=== PATIENT | female | born 1960 | race Caucasian/White ===

== ENCOUNTER 2019-07-23 14:50 | Emergency (ER) | payer BC, OTHER ==
[2019-07-23 14:59] VITALS: BP 176/91
--- NOTE | 2019-07-23 15:04 | ER Document Report ---
ED Medical Screen (RME) - General Chief Complaint: Knee Pain Stated Complaint: KNEE PAIN Time Seen by Provider: 07/23/19 14:59 Primary Care Provider: JUAN PAUL [Primary Care Provider] - Follow up as needed Mode of Arrival: Ambulatory Information source: Patient Notes: This 58-year-old female presents emergency department with complaints of left knee pain for a couple years increased in the last 6 months. Works as a head waitress at the [employer] and reports by the end of the week her knee is swollen. Denies trauma. Reports her father had arthritis. Left knee is benign looking no erythema no swelling no warmth no signs of infection no deformity I have greeted and performed a rapid initial assessment of this patient. A comprehensive ED assessment and evaluation of the patient, analysis of test results and completion of the medical decision making process will be conducted by additional ED providers. Dictation of this chart was performed using voice recognition software; therefore, there may be some unintended grammatical errors. - Related Data Allergies/Adverse Reactions: morphine Allergy (Verified 07/23/19 15:03) gabapentin Adverse Reaction (Verified 07/23/19 15:03) Past Medical History - Social History Chew tobacco use (# tins/day): No Frequency of alcohol use: Occasional Drug Abuse: None Physical Exam - Vital signs Vitals: Temp Pulse Resp BP Pulse Ox 98.3 F 72 18 176/91 H 98 07/23/19 14:58 07/23/19 14:58 07/23/19 14:58 07/23/19 14:58 07/23/19 14:58 Course - Vital Signs Vital signs: Temp Pulse Resp BP Pulse Ox 98.3 F 72 18 176/91 H 98 07/23/19 14:58 07/23/19 14:58 07/23/19 14:58 07/23/19 14:58 07/23/19 14:58 Doctor's Discharge - Discharge Referrals: JUAN PAUL [Primary Care Provider] - Follow up as needed
--- NOTE | 2019-07-23 15:36 | ER Document Report ---
ED Extremity Problem, Lower - General Chief Complaint: Knee Pain Stated Complaint: KNEE PAIN Time Seen by Provider: 07/23/19 14:59 Primary Care Provider: DIEGO ELWIS JR, DO [ACTIVE PROVISIONAL STAFF] - Follow up in 1 week Mode of Arrival: Ambulatory - HPI Notes: 58-year-old female to the emergency department with complaints of left knee pain that has been ongoing for about 2 years but has gotten significantly worse in the past 6 months. 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 She has been trying to control the pain herself with Tylenol and Motrin at home but as of late that has not helped to control her pain. She has not seen an orthopedist as she does not have insurance. She denies any recent falls. She denies any fevers, redness to the joint. There is a family history of arthritis. - Related Data Allergies/Adverse Reactions: morphine Allergy (Verified 07/23/19 15:03) gabapentin Adverse Reaction (Verified 07/23/19 15:03) Past Medical History - General Information source: Patient - Social History Smoking Status: Current Every Day Smoker Chew tobacco use (# tins/day): No Frequency of alcohol use: Occasional Drug Abuse: None Family History: Reviewed & Not Pertinent Patient has suicidal ideation: No Patient has homicidal ideation: No Review of Systems - Review of Systems Constitutional: denies: Chills, Fever EENT: No symptoms reported Cardiovascular: denies: Chest pain, Palpitations, Heart racing, Syncope, Dizziness, Lightheaded, Edema Respiratory: denies: Cough, Short of breath Gastrointestinal: denies: Abdominal pain, Diarrhea, Nausea, Vomiting Genitourinary: No symptoms reported Musculoskeletal: See HPI, Joint pain, Joint swelling Skin: No symptoms reported -: Yes All other systems reviewed and negative Physical Exam - Vital signs Vitals: Temp Pulse Resp BP Pulse Ox 98.3 F 72 18 176/91 H 98 07/23/19 14:58 07/23/19 14:58 07/23/19 14:58 07/23/19 14:58 07/23/19 14:58 Interpretation: Normal - General General appearance: Appears well, Alert - HEENT Head: Normocephalic, Atraumatic Eyes: Normal Pupils: PERRL - Respiratory Respiratory status: No respiratory distress Chest status: Nontender Breath sounds: Normal Chest palpation: Normal - Cardiovascular Rhythm: Regular Heart sounds: Normal auscultation Murmur: No - Abdominal Inspection: Normal Distension: No distension Bowel sounds: Normal Tenderness: Nontender Organomegaly: No organomegaly - Extremities Knee: Tender - there is TTP over the left knee joint. There is noted mild joint effusion. there is no erythema or evidence for septic joint. She cane ambulate on the knee with pain. non tender to palpation of the left hip and ankle. DP Pulses intact and equal. cap refill is less than 2 sec in all toes. - Neurological Neuro grossly intact: Yes Cognition: Normal Orientation: AAOx4 [place] Coma Scale Eye Opening: Spontaneous [place] Coma Scale Verbal: Oriented [place] Coma Scale Motor: Obeys Commands [place] Coma Scale Total: 15 Speech: Normal Cranial nerves: Normal Cerebellar coordination: Normal. No: Gait ataxia Motor strength normal: LUE, RUE, LLE, RLE Additional motor exam normals: Equal regulatory auditor. No: Pronator drift Sensory: Normal - Psychological Associated symptoms: Normal affect, Normal mood - Skin Skin Temperature: Warm Skin Moisture: Dry Skin Color: Normal Course - Re-evaluation Re-evalutation: Knee X-Ray 07/23/19 15:02 IMPRESSION: Moderate medial femorotibial compartment osteoarthrosis and small joint effusion that could be reactive to the osteoarthrosis. There is no associated fracture or dislocation. Impression: Chronic knee pain with OA. Will send home with small amount of pain meds. Urged following up with orthopedist without fail. Patient agrees with the plan. - Vital Signs Vital signs: Temp Pulse Resp BP Pulse Ox 98.3 F 72 18 176/91 H 98 07/23/19 14:58 07/23/19 14:58 07/23/19 14:58 07/23/19 14:58 07/23/19 14:58 Discharge - Discharge Clinical Impression: Arthritis of knee, right, Elevated blood pressure reading Right knee pain Qualifiers: Chronicity: chronic Qualified Code(s): M25.561 - Pain in right knee Condition: Stable Disposition: HOME, SELF-CARE Instructions: Arthritis ([facility]) Additional Instructions: FOLLOW UP WITH ORTHOPEDIST WITHOUT FAIL. TAKE MEDICINES PRESCRIBED. RETURN IF WORSE. Prescriptions: Lidocaine See Protocol TP BID #15 cream..g. Hydrocodone/Acetaminophen [[place] 5-325 mg Tablet] 1 tab PO Q6H #10 tablet Diclofenac Sodium [Voltaren] See Protocol TP BID #100 gel..gm. Forms: Return to Work Referrals: DIEGO LEWIS JR, DO [ACTIVE PROVISIONAL STAFF] - Follow up in 1 week
--- NOTE | 2019-07-23 15:38 | RADIOLOGY REPORT (SQ) ---
EXAM DESCRIPTION: KNEE LEFT 4 VIEW COMPLETED DATE/TIME: 07/23/2019 3:19 pm REASON FOR STUDY: knee pain, ? ra COMPARISON: None. NUMBER OF VIEWS: Four views. TECHNIQUE: AP, lateral, and both oblique radiographic images acquired of the left knee. LIMITATIONS: None. FINDINGS: MINERALIZATION: Normal. BONES: No acute fracture or dislocation. No osseous lesions. JOINT: Moderate medial femorotibial compartment osteoarthrosis and mild lateral femorotibial compartm ent and patellofemoral compartment osteoarthrosis. There is a small joint effusion. There is no ero leandra, chondrocalcinosis, or periarticular osteopenia. OTHER: Incidental fabella. The quadriceps and patellar tendons silhouettes are intact. IMPRESSION: Moderate medial femorotibial compartment osteoarthrosis and small joint effusion that co uld be reactive to the osteoarthrosis. There is no associated fracture or dislocation. TECHNICAL DOCUMENTATION: JOB ID: [id number] [employer]- All Rights Reserved Reading location - IP/workstation name: [email or web address]
== END 2019-07-23 16:19 | disposition home or self-care (01) ==
LOC: ER 14:50
DX: M17.12 Unilateral primary osteoarthritis, left knee (principal); M25.462 Effusion, left knee; M25.562 Pain in left knee; F17.200 Nicotine dependence, unspecified, uncomplicated; R03.0 Elevated blood-pressure reading, without diagnosis of hypertension; Z88.5 Allergy status to narcotic agent; Z88.6 Allergy status to analgesic agent
CPT/HCPCS: 99283

== ENCOUNTER 2019-12-17 11:35 | Emergency (ER) | payer SELFPAY ==
--- NOTE | 2019-12-17 11:56 | ER Document Report ---
ED Medical Screen (RME) - General Chief Complaint: Abdominal Pain Stated Complaint: ABDOMINAL PAIN Time Seen by Provider: 12/17/19 11:50 Primary Care Provider: JE HELM MD [Primary Care Provider] - Follow up as needed Mode of Arrival: Ambulatory Information source: Patient Notes: 59-year-old female presented to ED for left upper quadrant abdominal pain x3 weeks. She states that the pain is severe 10 minutes after she eats. She states the pain is so bad that even hurts for her shirt to touch it. Denies any nausea vomiting or diarrhea. Has not been to a provider to see this in the last 3 weeks. Patient is alert oriented respirations regular nonlabored speaking in full sentences. Bowel sounds are active abdomen soft tender to palpation to the left upper quadrant pain level at 3 out of 5 I have greeted and performed a rapid initial assessment of this patient. A comprehensive ED assessment and evaluation of the patient, analysis of test results and completion of medical decision making process will be conducted by an additional ED providers. - Related Data Allergies/Adverse Reactions: morphine Allergy (Verified 07/23/19 15:03) gabapentin Adverse Reaction (Verified 07/23/19 15:03) Past Medical History - General Information source: Patient - Social History Cigarette use (# per day): Yes - Half pack a day Frequency of alcohol use: Occasional Drug Abuse: None Family history: Reviewed & Not Pertinent - Past Medical History Cardiac Medical History: Reports: None Pulmonary Medical History: Reports: None EENT Medical History: Reports: None Neurological Medical History: Reports: None Endocrine Medical History: Reports: None Renal/ Medical History: Reports: None Malignancy Medical History: Reports: None GI Medical History: Reports: None Musculoskeltal Medical History: Reports None Skin Medical History: Reports None Psychiatric Medical History: Reports: None Traumatic Medical History: Reports: None Infectious Medical History: Reports: None Surgical Hx: Negative Past Surgical History: Reports: None - Immunizations Immunizations up to date: Yes Hx Diphtheria, Pertussis, Tetanus Vaccination: Yes Physical Exam - Vital signs Vitals: Temp Pulse Resp BP Pulse Ox 97.9 F 68 18 178/69 H 98 12/17/19 11:42 12/17/19 11:42 12/17/19 11:42 12/17/19 11:42 12/17/19 11:42 Course - Vital Signs Vital signs: Temp Pulse Resp BP Pulse Ox 97.9 F 68 18 178/69 H 98 12/17/19 11:42 12/17/19 11:42 12/17/19 11:42 12/17/19 11:42 12/17/19 11:42 Doctor's Discharge - Discharge Referrals: JE HELM MD [Primary Care Provider] - Follow up as needed
[2019-12-17 12:14] LABS: ABSOLUTE BASOPHILS # (AUTO) 0.1 10^3/uL (0.0-0.2); ABSOLUTE EOSINOPHILS # (AUTO) 0.3 10^3/uL (0.0-0.6); ABSOLUTE LYMPHOCYTES (AUTO) 1.9 10^3/uL (0.5-4.7); ABSOLUTE MONOCYTES (AUTO) 0.5 10^3/uL (0.1-1.4); ABSOLUTE NEUT (AUTO) 7.1 10^3/uL (1.7-8.2); BASOPHILS % (AUTO) 0.7 % (0-2); EOSINOPHILS % (AUTO) 2.6 % (0-6); HEMATOCRIT 46.6 % (36.0-47.0); HEMOGLOBIN 15.9 g/dL (12.0-15.5); LYMPHOCYTES % (AUTO) 19.6 % (13-45); MEAN CORPUSCULAR HGB CONC 34.2 g/dL (32.0-36.0); MEAN CORPUSCULAR VOLUME 97 fl (80-97); MONOCYTES % (AUTO) 5.1 % (3-13); PLATELET COUNT 283 10^3/uL (150-450); RED BLOOD COUNT 4.83 10^6/uL (3.72-5.28); RED CELL DISTRIBUTION WIDTH 13.3 % (11.5-14.0); TOTAL CELLS COUNTED % (AUTO) 100 %; WHITE BLOOD COUNT 9.8 10^3/uL (4.0-10.5)
[2019-12-17 12:26] LABS: APPEARANCE,URINE CLEAR; BILIRUBIN,URINE NEGATIVE (NEGATIVE); COLOR,URINE YELLOW; GLUCOSE, URINE NEGATIVE (NEGATIVE); KETONES,URINE NEGATIVE (NEGATIVE); PROTEIN,URINE NEGATIVE (NEGATIVE); URINE SPECIFIC GRAVITY 1.009; UROBILINOGEN,URINE NEGATIVE mg/dL (<2.0)
[2019-12-17 12:34] LABS: ALBUMIN 4.3 g/dL (3.5-5.0); ALKALINE PHOSPHATASE 102 U/L (38-126); ANION GAP 7 (5-19); ASPARTATE AMINO TRANSFERASE 20 U/L (14-36); BILIRUBIN,TOTAL 0.5 mg/dL (0.2-1.3); BLOOD UREA NITROGEN 15 mg/dL (7-20); CALCIUM 9.5 mg/dL (8.4-10.2); CARBON DIOXIDE 26 mmol/L (22-30); CHLORIDE 105 mmol/L (98-107); GLUCOSE 101 mg/dL (75-110); POTASSIUM 4.2 mmol/L (3.6-5.0); TOTAL PROTEIN 7.2 g/dL (6.3-8.2)
--- NOTE | 2019-12-17 13:15 | RADIOLOGY REPORT (SQ) ---
EXAM DESCRIPTION: U/S ABDOMEN LTD W/DOPPLER COMPLETED DATE/TIME: 12/17/2019 12:56 pm REASON FOR STUDY: Left to center upper abdominal pain COMPARISON: None. TECHNIQUE: Dynamic and static grayscale images acquired of the abdomen and recorded on PACS. Floydo ladonna selected color Doppler and spectral images recorded. LIMITATIONS: None. FINDINGS: PANCREAS: No masses. No peripancreatic edema or fluid collections. LIVER: Echotexture is coarse with increased echogenicity consistent with fatty infiltration. Top nor mal size 18 cm. LIVER VASCULATURE: Normal directional flow of the main portal vein and hepatic veins. GALLBLADDER: No stones. Normal wall thickness. No pericholecystic fluid. ULTRASOUND-DETECTED RODAS'S SIGN: Negative. INTRAHEPATIC DUCTS AND COMMON DUCT: CBD and intrahepatic ducts normal caliber. No filling defects. INFERIOR VENA CAVA: Normal flow. AORTA: No aneurysm. RIGHT KIDNEY: Normal size. Normal echogenicity. No solid or suspicious masses. No hydronephros is. No calcifications. PERITONEAL AND RIGHT PLEURAL SPACE: No ascites or effusions. OTHER: No other significant finding. IMPRESSION: 1. No acute abnormality. Gallbladder looks normal sonographically. 2. Fatty liver. TECHNICAL DOCUMENTATION: JOB ID: [id number] 2010 [email or web address]- All Rights Reserved Reading location - IP/workstation name: [email or web address]
--- NOTE | 2019-12-17 13:38 | ER Document Report ---
ED General - General Chief Complaint: Abdominal Pain Stated Complaint: ABDOMINAL PAIN Time Seen by Provider: 12/17/19 11:50 Primary Care Provider: JE HELM MD [NO LOCAL MD] - Follow up as needed Mode of Arrival: Ambulatory TRAVEL OUTSIDE OF THE [place] IN LAST 30 DAYS: No - HPI Notes: Patient is a 59-year-old female with a history of gastric bypass, no other significant past medical history, who presents complaining of mid to upper abdominal pain that is been present for the past 3 weeks. Patient states that it is worsened about 10 minutes after she eats. Pain does not radiate. She is urinating normally and having normal bowel movements. Denies any headache, fever, neck pain, URI, sore throat, chest pain, palpitations, syncope, cough, shortness of breath, wheeze, dyspnea, abdominal pain, nausea/vomiting/diarrhea, urinary retention, dysuria, hematuria, back pain, or rash. - Related Data Allergies/Adverse Reactions: morphine Allergy (Verified 12/17/19 11:55) gabapentin Adverse Reaction (Verified 12/17/19 11:55) Home Medications: aleve Past Medical History - General Information source: Patient - Social History Smoking Status: Current Every Day Smoker Cigarette use (# per day): Yes - Half pack a day Chew tobacco use (# tins/day): No Frequency of alcohol use: Occasional Drug Abuse: None Family History: Reviewed & Not Pertinent Patient has suicidal ideation: No Patient has homicidal ideation: No - Past Medical History Cardiac Medical History: Reports: None Pulmonary Medical History: Reports: None EENT Medical History: Reports: None Neurological Medical History: Reports: None Endocrine Medical History: Reports: None Renal/ Medical History: Reports: None Malignancy Medical History: Reports: None GI Medical History: Reports: None Musculoskeletal Medical History: Reports None Skin Medical History: Reports None Psychiatric Medical History: Reports: None Traumatic Medical History: Reports: None Infectious Medical History: Reports: None Surgical Hx: Negative Past Surgical History: Reports: None - Immunizations Immunizations up to date: Yes Hx Diphtheria, Pertussis, Tetanus Vaccination: Yes Review of Systems - Review of Systems -: Yes All other systems reviewed and negative Physical Exam - Vital signs Vitals: Temp Pulse Resp BP Pulse Ox 97.9 F 68 18 178/69 H 98 12/17/19 11:41 12/17/19 11:41 12/17/19 11:41 12/17/19 11:41 12/17/19 11:41 - Notes Notes: PHYSICAL EXAMINATION: GENERAL: Well-appearing, well-nourished and in no acute distress. HEAD: Atraumatic, normocephalic. EYES: Pupils equal round and reactive to light, extraocular movements intact, sclera anicteric, conjunctiva are normal. ENT: Nares patent and without discharge. oropharynx clear without exudates. No tonsilar hypertrophy or erythema. Moist mucous membranes. NECK: Normal range of motion, supple without lymphadenopathy LUNGS: Breath sounds clear to auscultation bilaterally and equal. No wheezes rales or rhonchi. HEART: Regular rate and rhythm without murmurs, rubs, gallops. ABDOMEN: Soft, nondistended abdomen. No guarding, no rebound. Normal bowel sounds present. No CVA tenderness bilaterally. + tenderness to the mid/upper abd. Alfaro neg. No lower tenderness appreciated. Musculoskeletal: FROM to passive/active. Strength 5+/5. Extremities: No cyanosis, clubbing, or edema b/l. Peripheral pulses 2+. Capillary refill less than 3 seconds. NEUROLOGICAL: Normal speech, normal gait. PSYCH: Normal mood, normal affect. SKIN: Warm, Dry, normal turgor, no rashes or lesions noted. Course - Re-evaluation Re-evalutation: 12/17/19 17:45 Patient is an afebrile, well-hydrated, 25-year-old female who presents to the ED with mid abd pain nonspecific. Vitals are acceptable without any significant tachycardia, tachypnea, or hypoxia. PE is otherwise unremarkable. Labs/imaging unremarkable. Patient is nontoxic-appearing is tolerating p.o. without any difficulties. No other labs or imaging warranted at this time based on H&P. Low suspicion/risk for acute appendicitis, bowel obstruction, acute cholecystitis, acute cholangitis, perforated diverticulitis, incarcerated hernia, pancreatitis, perforated ulcer, peritonitis, sepsis, pelvic inflammatory disease, ectopic , tubo-ovarian abscess, ovarian torsion, or other systemic emergent condition at this time. Patient is aware that her condition can change from initial presentation and she needs to monitor symptoms closely and seek medical attention if any acute changes. I will send her home with prescription for omeprazole/carafate. Conservative measures otherwise for sy mptoms. Recheck with your PCM/GI/Bariatrics in 3-5 days. Return to the ED with any worsening/concerning symptoms otherwise as reviewed in discharge. Patient is in agreement. - Vital Signs Vital signs: Temp Pulse Resp BP Pulse Ox 97.8 F 55 L 16 134/102 H 98 12/17/19 15:11 12/17/19 15:11 12/17/19 15:11 12/17/19 15:11 12/17/19 15:11 - Laboratory Result Diagrams: 12/17/19 12:00 12/17/19 12:00 Laboratory results interpreted by me: 12/17/19 12:00 Hgb 15.9 H Discharge - Discharge Clinical Impression: Abdominal pain Qualifiers: Abdominal location: upper abdomen, unspecified Qualified Code(s): R10.10 - Upper abdominal pain, unspecified Condition: Stable Disposition: HOME, SELF-CARE Instructions: Abdominal Pain ([facility]) Additional Instructions: It is important that you follow-up with a bariatric surgeon regarding your persistent abdominal pain as this could be an ulcer that may need an endoscopy to evaluate. Maintain adequate fluid and food intake tylenol if needed Monitor for any worsening symptoms Make sure you are staying hydrated enough to urinate and have normal BM's Recheck with your PCM in 3-5 days Schedule an appointment with bariatrics/GI Return to the ED with any worsening symptoms and/or development of fever, headache, chest pain, palpitations, syncope, shortness of breath, trouble breathing, abdominal pain, n/v/d, blood in stool/urine, weakness, or other worsening symptoms that are concerning to you. Prescriptions: Sucralfate [Carafate] 1 gm PO TID 30 Days Hydrocodone/Acetaminophen [Lortab 7.5-325 mg/15 ml Oral Soln] 10 ml PO BID #80 ml Omeprazole Magnesium [Prilosec] 20 mg PO DAILY 30 Days suspdr.pkt Forms: Elevated Blood Pressure Referrals: JE HELM MD [NO LOCAL MD] - Follow up as needed ROWENA GRAHAM MD [ACTIVE STAFF] - Follow up as needed MARILOU MCKAY MD [ACTIVE STAFF] - Follow up as needed
[2019-12-17 15:20] VITALS: BP 134/102
--- NOTE | 2019-12-17 16:38 | RADIOLOGY REPORT (SQ) ---
EXAM DESCRIPTION: CT ABD/PELVIS WITH IV ORAL COMPLETED DATE/TIME: 12/17/2019 4:17 pm REASON FOR STUDY: mid abd pain COMPARISON: None. TECHNIQUE: CT scan of the abdomen and pelvis performed using helical scanning technique with dynamic intravenous contrast injection. No oral contrast. Images reviewed with lung, soft tissue, and bone windows. Reconstructed coronal and sagittal MPR images reviewed. Delayed images for evaluation of the urinary system also acquired. All images stored on PACS. All CT scanners at this facility use dose modulation, iterative reconstruction, and/or weight based d osing when appropriate to reduce radiation dose to as low as reasonably achievable (ALARA). [facility]: Dose Right [facility]: CareDose [facility]: Dose Right [facility]: Teradose 4D [facility]: Bevii CONTRAST TYPE AND DOSE: contrast/concentration: Isovue 350.00 mg/ml; Total Contrast Delivered: 98.0 ml; Total Saline Delivered: 41.5 ml RENAL FUNCTION: BUN 15 creatinine 0.84. RADIATION DOSE: CT Rad equipment meets quality standard of care and radiation dose reduction techniq ues were employed. CTDIvol: 16.6 - 19.3 mGy. DLP: 1954 mGy-cm.. LIMITATIONS: None. FINDINGS: LOWER CHEST: No significant findings. No nodules or infiltrates. LIVER: Normal size. No masses. No dilated ducts. SPLEEN: Normal size. No focal lesions. PANCREAS: No masses. No significant calcifications. No adjacent inflammation or peripancreatic fluid collections. Pancreatic duct not dilated. GALLBLADDER: No identified stones by CT criteria. No inflammatory changes to suggest cholecystitis. ADRENAL GLANDS: No significant masses or asymmetry. RIGHT KIDNEY AND URETER: No solid masses. No significant calcifications. No hydronephrosis or hyd roureter. LEFT KIDNEY AND URETER: No solid masses. No significant calcifications. No hydronephrosis or hydr oureter. AORTA AND VESSELS: No aneurysm. No dissection. Renal arteries, SMA, celiac without stenosis. RETROPERITONEUM: No retroperitoneal adenopathy, hemorrhage or masses. BOWEL AND PERITONEAL CAVITY: Previous gastric surgery. No masses or inflammatory changes. No free fl uid or peritoneal masses. APPENDIX: Normal. PELVIS: No mass. No free fluid. Normal bladder. ABDOMINAL WALL: No masses. No hernias. BONES: No significant or acute findings. OTHER: No other significant finding. IMPRESSION: NO SIGNIFICANT OR ACUTE FINDING IN THE ABDOMEN OR PELVIS ON CT SCAN WITH IV CONTRAST. TECHNICAL DOCUMENTATION: JOB ID: [id number] Quality ID # [id number]: Final reports with documentation of one or more dose reduction techniques (e.g., Au tomated exposure control, adjustment of the mA and/or kV according to patient size, use of iterative reconstruction technique) 2010 [employer]- All Rights Reserved Reading location - IP/workstation name: [email or web address]
[2019-12-17] MEDS ORDERED: LIDOCAINE 2% VISCOUS SOLN 15 ML UDCUP PO ONE (17:24)
[2019-12-17] MEDS ORDERED: MAG HYDROX/AL HYDROX/SIMETH SUSP 30 ML UDCUP PO ONE (17:24)
== END 2019-12-17 18:34 | disposition home or self-care (01) ==
LOC: ER 11:35
DX: R10.10 Upper abdominal pain, unspecified (principal); R10.819 Abdominal tenderness, unspecified site; F17.210 Nicotine dependence, cigarettes, uncomplicated; Z98.84 Bariatric surgery status; Z79.1 Long term (current) use of non-steroidal anti-inflammatories (NSAID); Z88.6 Allergy status to analgesic agent; Z88.5 Allergy status to narcotic agent
CPT/HCPCS: 99284; 36415; 82553; 83690; 85025; 80053; 81001; 76705; 93976; 74177; J3490

== ENCOUNTER → 2020-11-05 | Outpatient (CLI) | payer SELFPAY ==
[~2020-11-05] MED LIST: COVID-19 VACCINE (PFIZER)/PF 30 MCG/0.3 ML VIAL IM ONE; EPINEPHRINE INJ/PF 1 MG/1 ML AMPULE IM PRN
== END ==
LOC: EMPHEALTH 15:48
PROVIDERS: ATTEND Internal Medicine
DX: Z23 Encounter for immunization (principal)
CPT/HCPCS: 91300